=== PATIENT | female | born 1990 | race African-American/Black ===

== ENCOUNTER 2021-05-29 15:58 | Observation (INO) ==
[2021-05-29 17:10] LABS: Basophils # 0.1 K/mcL (0.0-0.2); Basophils % 0.8 %; Eosinophils # 0.1 K/mcL (0.0-0.6); Eosinophils % 0.9 %; Hematocrit 42.8 % (35.3-44.9); Hemoglobin 13.3 g/dL (11.5-15.4); Immature Granulocytes % 0.3 % (0-4); Lymphocytes # 1.7 K/mcL (0.6-4.6); Lymphocytes % 26.3 %; Mean Corpuscular HGB Conc 31.1 g/dL (31.6-35.5); Mean Corpuscular Hemoglobin 25.6 pg (28.0-33.3); Mean Corpuscular Volume 82.5 fL (83.0-100.0); Mean Platelet Volume 9.1 fL (9.4-12.4); Monocytes # 0.4 K/mcL (0.0-1.3); Monocytes % 5.8 %; Neutrophils # 4.4 K/mcL (1.6-8.9); Platelet Count 371 K/mcL (140-400); Red Blood Count 5.19 M/mcL (3.82-4.97); Red Cell Distribution Width 13.8 % (11.5-14.5); Segmented Neutrophils % 65.9 %; White Blood Count 6.6 K/mcL (4.3-11.1)
[2021-05-29 17:20] LABS: BUN/Creatinine Ratio 17 (6-26); Blood Urea Nitrogen 14 mg/dL (6-20); Calcium 9.5 mg/dL (8.6-10.3); Carbon Dioxide 26 mEq/L (23-29); Chloride 103 mEq/L (98-107); Glucose 98 mg/dL (70-105); Osmolality,Calculated 284 (280-300); Sodium 137 mEq/L (136-145); eGFR For African Americans > 60 (> 60); eGFR For Non-African Americans > 60 (> 60)
[2021-05-29] MEDS ORDERED: Isovue-370 500 ML BOTTLE IVP ONE (17:38)
[2021-05-29 18:02] LABS: Influenza A PCR Negative (Negative); Influenza B PCR Negative (Negative); Resp. Syncytial Virus PCR Negative (Negative)
[2021-05-29 18:03] LABS: SARS-CoV-2 by PCR (In House) Negative (Negative)
[2021-05-29 18:41] LABS: Bacteria,Urine Few per hpf (None-Few); Bilirubin,Urine Negative (Negative); Blood,Urine Large (Negative); Clarity,Urine Turbid (Clear); Color,Urine Light-Orange (Yellow); Glucose,Urine (UA) Normal (Normal); Ketones,Urine Trace mg/dL (Negative); Leukocyte Esterase,Urine Moderate (Negative); Mucus,Urine Many per lpf (None-Few); Nitrite,Urine Negative (Negative); Protein,Urine 70 mg/dL (Neg-Trace); RBC,Urine TNTC per hpf (0-3); Renal Epithelial Cells,Urine Few per hpf (None-Few); Specific Gravity,Urine 1.027 (1.010-1.025); Squamous Epithelial Cell,Urine Many per hpf (None-Few); Transitional Epi Cells,Urine Few per hpf (None-Few); Urobilinogen,Urine Normal (Normal); WBC,Urine 50-100 per hpf (0-3)
[2021-05-29] MEDS ORDERED: *HR* Heparin 5,000 UNIT/ML VIAL IVP PRN ×2 (19:40)
[2021-05-29] MEDS ORDERED: *HR* Heparin 5,000 UNIT/ML VIAL IVP ONE (19:40)
[2021-05-29] MEDS ORDERED: Heparin 25,000UNIT/250ML 1/2NS 25,000 UNIT/250 ML IV.SOLN IVC SCH (19:45)
[2021-05-29 19:47] LABS: INR 1.1; Prothrombin Time 12.7 Seconds (9.4-12.1)
[2021-05-29 19:50] LABS: Activated Partial Thrombo Time 31.8 Seconds (26.0-36.0)
[2021-05-29] MEDS ORDERED: Heparin 25,000UNIT/250ML 1/2NS 25,000 UNIT/250 ML IV.SOLN ONE (19:51)
[2021-05-29] MEDS ORDERED: Piperacillin/Tazobactam 3.375 GM in 0.9 % Sodium Chloride Mini Bag 100 ML IVPB ONE (21:40)
[2021-05-29] MEDS ORDERED: Azithromycin 500 MG in 0.9 % Sodium Chloride 250 ML IVPB ONE (21:51)
[2021-05-29] MEDS ORDERED: Naloxone 0.4 MG/ML INJ IVP PRN (23:21)
[2021-05-29] MEDS ORDERED: Melatonin 3 MG TABLET PO PRN (23:21)
[2021-05-29] MEDS ORDERED: Ondansetron 4 MG/2 ML VIAL IVP PRN (23:21)
[2021-05-30] MEDS ORDERED: *HR* Heparin 5,000 UNIT/ML VIAL IVP PRN ×2 (00:58)
[2021-05-30] MEDS ORDERED: Heparin 25,000UNIT/250ML 1/2NS 25,000 UNIT/250 ML IV.SOLN IVC SCH (01:00)
[2021-05-30] MEDS: *HR* HYDROcodone/Acet 5/325 mg TABLET PO PRN ×4 (01:58→21:35)
[2021-05-30] MEDS ORDERED: Perflutren Lipid Microsphere 1.3 ML in 0.9 % Sodium Chloride 8.7 ML IVP PRN (02:25)
[2021-05-30] MEDS ORDERED: Gadolinium Contrast Agent (WT Based) IV PRN (07:37)
[2021-05-30] MEDS ORDERED: *HR* LORazepam 2 MG/ML VIAL IVP ONE (08:14)
[2021-05-30] MEDS: Piperacillin/Tazobactam 3.375 GM in 0.9 % Sodium Chloride Mini Bag 100 ML IVPB SCH ×2 (12:17→21:29)
[2021-05-30] MEDS: *HR* Enoxaparin 100 MG/ML SYRINGE SQ SCH ×2 (12:18→21:30)
[2021-05-30] MEDS ORDERED: hydrOXYzine pamoate 25 MG CAPSULE PO PRN (16:48)
[2021-05-30] MEDS ORDERED: Azithromycin 250 MG TABLET PO SCH (21:00)
[2021-05-31] MEDS: *HR* HYDROcodone/Acet 5/325 mg TABLET PO PRN (03:52)
[2021-05-31] MEDS: Piperacillin/Tazobactam 3.375 GM in 0.9 % Sodium Chloride Mini Bag 100 ML IVPB SCH (03:52)
[2021-05-31 06:58] LABS: Hematocrit 35.4 % (35.3-44.9); Mean Corpuscular HGB Conc 31.1 g/dL (31.6-35.5); Mean Corpuscular Hemoglobin 25.6 pg (28.0-33.3); Mean Corpuscular Volume 82.3 fL (83.0-100.0); Mean Platelet Volume 9.2 fL (9.4-12.4); Platelet Count 363 K/mcL (140-400); Red Cell Distribution Width 13.7 % (11.5-14.5)
[2021-05-31 07:00] LABS: Basophils % 0.5 %; Eosinophils # 0.2 K/mcL (0.0-0.6); Eosinophils % 2.5 %; Hematocrit 35.6 % (35.3-44.9); Hemoglobin 10.9 g/dL (11.5-15.4); Immature Granulocytes % 0.3 % (0-4); Lymphocytes # 2.3 K/mcL (0.6-4.6); Lymphocytes % 38.7 %; Mean Corpuscular HGB Conc 30.6 g/dL (31.6-35.5); Mean Corpuscular Hemoglobin 25.2 pg (28.0-33.3); Mean Corpuscular Volume 82.4 fL (83.0-100.0); Mean Platelet Volume 9.3 fL (9.4-12.4); Monocytes # 0.5 K/mcL (0.0-1.3); Monocytes % 7.7 %; Platelet Count 364 K/mcL (140-400); Red Blood Count 4.32 M/mcL (3.82-4.97); Red Cell Distribution Width 13.5 % (11.5-14.5); Segmented Neutrophils % 50.3 %
[2021-05-31 07:05] LABS: INR 1.2; Prothrombin Time 12.9 Seconds (9.4-12.1)
[2021-05-31 07:19] LABS: Alanine Aminotransferase 9 Units/L (7-52); Albumin 3.4 g/dL (3.5-5.7); Albumin/Globulin Ratio 1.2 (1.1-2.2); Alkaline Phosphatase 76 Units/L (34-104); Aspartate Amino Transferase 8 Units/L (13-39); BUN/Creatinine Ratio 25 (6-26); Bilirubin,Total 0.3 mg/dL (0.3-1.0); Blood Urea Nitrogen 17 mg/dL (6-20); Calcium 8.9 mg/dL (8.6-10.3); Carbon Dioxide 24 mEq/L (23-29); Chloride 107 mEq/L (98-107); Globulin 2.9 g/dL (2.4-3.5); Glucose 103 mg/dL (70-105); Osmolality,Calculated 288 (280-300); Potassium 4.2 mEq/L (3.5-5.1); Sodium 138 mEq/L (136-145); Total Protein 6.3 g/dL (6.4-8.9); eGFR For African Americans > 60 (> 60); eGFR For Non-African Americans > 60 (> 60)
[2021-05-31 08:57] VITALS: BP 108/70; PULSE 84; TEMP 99; O2SAT 98
[2021-05-31] MEDS ORDERED: *HR* Rivaroxaban 15 MG TABLET PO SCH (09:00)
[2021-06-03 03:18] LABS: APTT (LE Anticoag) 101 sec (32-48); Diluted Russell Viper Venom 35 sec (33-44); LE Coag APTT Mixing 58 sec (32-48); PT (LE-Anticoag) 15.5 sec (12.0-15.5); Thrombin Time 16.8 sec (14.7-19.5)
== END 2021-05-31 11:30 | disposition home or self-care (01) ==
LOC: 2ANU 15:58 → EMEROOARM 15:58 → SUATTDRO 05-30 00:22 → 2ANU 05-30 00:25
PROVIDERS: ADMIT Internal Medicine; ATTEND Internal Medicine

== ENCOUNTER 2021-12-22 06:05 | Inpatient (IN) ==
[2021-12-22] MEDS ORDERED: Ringers Solution, Lactated 1,000 ML IVC SCH (06:45)
[2021-12-22] MEDS ORDERED: *HR* OxyCODONE Immed Rel 5 MG TABLET PO PRN (07:18)
[2021-12-22] MEDS ORDERED: Promethazine 6.25 MG in Water for inj. (sterile) 20 ML IVPB PRN (07:18)
[2021-12-22] MEDS ORDERED: *HR* HYDROmorphone PF 0.5 MG/0.5 ML SYRINGE IVP PRN (07:18)
[2021-12-22] MEDS ORDERED: Famotidine 20 MG/2 ML VIAL IVP ONE (07:18)
[2021-12-22] MEDS ORDERED: Scopolamine Patch 1.5 MG PATCH.TD72 TD ONE (07:18)
[2021-12-22] MEDS ORDERED: Acetaminophen IV 1,000 MG/100 ML BAG IVPB ONE (07:18)
[2021-12-22] MEDS ORDERED: *HR* HYDROmorphone 2 MG TABLET PO PRN (07:18)
[2021-12-22] MEDS ORDERED: Pregabalin 75 MG CAPSULE PO ONE (07:18)
[2021-12-22] MEDS ORDERED: Lidocaine -MPF 2% 2 ML VIAL ONE ×2 (07:48→07:49)
[2021-12-22] MEDS ORDERED: *HR* Propofol 200 MG/20 ML VIAL IVP ONE ×3 (07:48→10:41)
[2021-12-22] MEDS ORDERED: *HR* Midazolam HCl 2 MG/2 ML VIAL ONE ×2 (07:48→09:29)
[2021-12-22] MEDS ORDERED: *HR* FentaNYL (PF) 100 MCG/2 ML VIAL ONE (07:48)
[2021-12-22] MEDS ORDERED: Ondansetron 4 MG/2 ML VIAL ONE (07:49)
[2021-12-22] MEDS ORDERED: Ketamine HCL *QUVA* 50mg (1mL) SYRINGE ONE (07:52)
[2021-12-22] MEDS ORDERED: *HR* Belladonna Alkaloids/Opium 30 MG RECTAL SUPPOSITORY RC ONE (08:00)
[2021-12-22] MEDS ORDERED: Bupivacaine/EPI 1:200k 0.25% 50 ML VIAL ONE (08:01)
[2021-12-22] MEDS ORDERED: Ferric Subsulfate 8 GM TOPICAL ONE (08:01)
[2021-12-22] MEDS: ACETIC ACID IR SCH (09:11)
[2021-12-22] MEDS ORDERED: Silver Nitrate Applicator 1 STICK..EA. TP ONE (09:32)
[2021-12-22] MEDS ORDERED: Ibuprofen 600 MG TABLET PO PRN (10:05)
[2021-12-22] MEDS ORDERED: flumazeniL 0.5 MG/5 ML VIAL IVP ONE (10:17)
[2021-12-22] MEDS ORDERED: Heparin 1,000 UNITS/500 mL 500 ML ONE (10:58)
[2021-12-22 11:07] LABS: ABG Base Excess -1 mEq/L (-2 to 3); ABG HCO3 24 mEq/L (21-27); ABG Oxygen Saturation 99 % (95-98); ABG PCO2 38 mmHg (35-45); ABG PH 7.41 pH Units (7.32-7.45); ABG PO2 127 mmHg (85-104); ABG TCO2 25 mEq/L (20-26); Blood Gas Pressure Support 12 cm H2O
[2021-12-22] MEDS: *HR* Labetalol 20 MG/4 ML SYRINGE IVP PRN ×2 (11:24→11:35)
[2021-12-22] MEDS ORDERED: Isovue-370 500 ML BOTTLE IVP ONE ×2 (11:42→12:07)
[2021-12-22 11:53] LABS: ABG Base Excess 0 mEq/L (-2 to 3); ABG HCO3 24 mEq/L (21-27); ABG Oxygen Saturation 100 % (95-98); ABG PCO2 36 mmHg (35-45); ABG PH 7.44 pH Units (7.32-7.45); ABG PO2 217 mmHg (85-104); ABG TCO2 25 mEq/L (20-26)
[2021-12-22] MEDS ORDERED: Ipratropium/Albuterol Neb 3 ML ONE (11:55)
[2021-12-22 12:08] LABS: Alanine Aminotransferase 10 Units/L (7-52); Albumin 3.8 g/dL (3.5-5.7); Albumin/Globulin Ratio 1.3 (1.1-2.2); Alkaline Phosphatase 112 Units/L (34-104); Aspartate Amino Transferase 10 Units/L (13-39); BUN/Creatinine Ratio 19 (6-26); Bilirubin,Total 0.2 mg/dL (0.3-1.0); Blood Urea Nitrogen 11 mg/dL (6-20); Calcium 8.8 mg/dL (8.6-10.3); Carbon Dioxide 24 mEq/L (23-29); Chloride 107 mEq/L (98-107); Globulin 2.9 g/dL (2.4-3.5); Glucose 113 mg/dL (70-105); Magnesium 1.9 mg/dL (1.6-2.6); Osmolality,Calculated 288 (280-300); Sodium 139 mEq/L (136-145); Total Protein 6.7 g/dL (6.4-8.9); eGFR For African Americans > 60 (> 60); eGFR For Non-African Americans > 60 (> 60)
[2021-12-22 13:30] LABS: Basophils % 0.3 %; Hematocrit 40.7 % (35.3-44.9); Hemoglobin 12.3 g/dL (11.5-15.4); Immature Granulocytes % 0.3 % (0-4); Lymphocytes # 0.8 K/mcL (0.6-4.6); Lymphocytes % 12.8 %; Mean Corpuscular HGB Conc 30.2 g/dL (31.6-35.5); Mean Corpuscular Hemoglobin 23.6 pg (28.0-33.3); Mean Corpuscular Volume 78.1 fL (83.0-100.0); Mean Platelet Volume 9.6 fL (9.4-12.4); Monocytes # 0.1 K/mcL (0.0-1.3); Monocytes % 1.4 %; Neutrophils # 5.6 K/mcL (1.6-8.9); Platelet Count 343 K/mcL (140-400); Red Blood Count 5.21 M/mcL (3.82-4.97); Red Cell Distribution Width 18.7 % (11.5-14.5); Segmented Neutrophils % 85.2 %; White Blood Count 6.6 K/mcL (4.3-11.1)
[2021-12-22 13:41] LABS: INR 1.1; Prothrombin Time 12.7 Seconds (9.4-12.1)
[2021-12-22] MEDS ORDERED: Ipratropium/Albuterol Neb 3 ML IH ONE (13:41)
[2021-12-22] MEDS ORDERED: Dexamethasone Sodium Phos/PF 10 MG/ML VIAL IVP ONE (13:42)
[2021-12-22 13:44] LABS: Activated Partial Thrombo Time 35.5 Seconds (26.0-36.0)
[2021-12-22] MEDS: D5% in 0.45% NACL w KCl 20 MEQ/1,000 ML MLS IVC SCH (15:39)
[2021-12-22] MEDS ORDERED: Gadolinium Contrast Agent (WT Based) IV PRN (16:59)
[2021-12-22] MEDS ORDERED: Dexmedetomidine HCl 400 MCG/100 ML MLS IVC ONE (20:13)
[2021-12-22] MEDS: Dexmedetomidine HCl 400 MCG/100 ML MLS IVC SCH (21:18)
[2021-12-23] MEDS: D5% in 0.45% NACL w KCl 20 MEQ/1,000 ML MLS IVC SCH (02:53)
[2021-12-23] MEDS: Dexmedetomidine HCl 400 MCG/100 ML MLS IVC SCH (02:57)
[2021-12-23 08:00] LABS: Basophils % 0.1 %; Hemoglobin 11.3 g/dL (11.5-15.4); Immature Granulocytes % 0.4 % (0-4); Lymphocytes # 1.5 K/mcL (0.6-4.6); Lymphocytes % 15.8 %; Mean Corpuscular HGB Conc 29.7 g/dL (31.6-35.5); Mean Corpuscular Hemoglobin 23.6 pg (28.0-33.3); Mean Corpuscular Volume 79.5 fL (83.0-100.0); Monocytes # 0.9 K/mcL (0.0-1.3); Monocytes % 9.1 %; Neutrophils # 6.9 K/mcL (1.6-8.9); Platelet Count 344 K/mcL (140-400); Red Blood Count 4.78 M/mcL (3.82-4.97); Red Cell Distribution Width 19.1 % (11.5-14.5); Segmented Neutrophils % 74.6 %; White Blood Count 9.3 K/mcL (4.3-11.1)
[2021-12-23 08:16] LABS: BUN/Creatinine Ratio 10 (6-26); Blood Urea Nitrogen 7 mg/dL (6-20); Calcium 8.8 mg/dL (8.6-10.3); Carbon Dioxide 25 mEq/L (23-29); Chloride 108 mEq/L (98-107); Glucose 155 mg/dL (70-105); Osmolality,Calculated 291 (280-300); Potassium 4.6 mEq/L (3.5-5.1); Sodium 140 mEq/L (136-145); eGFR For African Americans > 60 (> 60); eGFR For Non-African Americans > 60 (> 60)
[2021-12-23] MEDS ORDERED: Ibuprofen 600 MG TABLET PO PRN (18:39)
[2021-12-23] MEDS ORDERED: Dexmedetomidine HCl 400 MCG/100 ML MLS IVC SCH (18:39)
[2021-12-23] MEDS ORDERED: Acetaminophen 325 MG TABLET PO ONE (20:32)
[2021-12-23] MEDS: Ibuprofen 600 MG TABLET PO PRN (23:59)
[2021-12-24 06:08] LABS: Bacteria,Urine Few per hpf (None-Few); Bilirubin,Urine Negative (Negative); Blood,Urine Large (Negative); Clarity,Urine Turbid (Clear); Color,Urine Light-Yellow (Yellow); Glucose,Urine (UA) Normal (Normal); Ketones,Urine Negative (Negative); Leukocyte Esterase,Urine Large (Negative); Mucus,Urine Few per lpf (None-Few); Nitrite,Urine Negative (Negative); PH,Urine 6.5 pH Units (5.0-8.0); Protein,Urine 30 mg/dL (Neg-Trace); Squamous Epithelial Cell,Urine Many per hpf (None-Few); Urobilinogen,Urine Normal (Normal); WBC,Urine 15-30 per hpf (0-3)
[2021-12-24] MEDS ORDERED: Thiamine (B-1) 100 MG in 0.9 % Sodium Chloride 50 ML IVPB SCH (14:00)
[2021-12-24] MEDS: Ibuprofen 600 MG TABLET PO PRN (15:44)
[2021-12-24] MEDS: *HR* Rivaroxaban 10 MG TABLET PO SCH (15:44)
[2021-12-24] MEDS: Methylphenidate HCl 10 MG TABLET PO SCH ×2 (15:44→16:03)
[2021-12-24] MEDS: Thiamine (B-1) 100 MG TABLET PO SCH (16:00)
[2021-12-24] MEDS ORDERED: *HR* Rivaroxaban 15 MG TABLET PO SCH (17:00)
[2021-12-24] MEDS: Ondansetron ODT 4 MG TAB.RAPDIS SL PRN (18:40)
[2021-12-24 19:03] LABS: Amphetamines NEGATIVE ng/mL (Cutoff 20); Barbiturates NEGATIVE ng/mL (Cutoff 50); Buprenorphine NEGATIVE ng/mL (Cutoff 1); Cocaine NEGATIVE ng/mL (Cutoff 20); Methadone NEGATIVE ng/mL (Cutoff 25); Methamphetamines NEGATIVE ng/mL (Cutoff 20); Opiates NEGATIVE ng/mL (Cutoff 20); Phencyclidine NEGATIVE ng/mL (Cutoff 10)
[2021-12-24] MEDS: *HR* Rivaroxaban 15 MG TABLET PO SCH ×2 (20:30→20:32)
[2021-12-24] MEDS: ACETIC ACID IR SCH (20:30)
[2021-12-25] MEDS: Thiamine (B-1) 100 MG TABLET PO SCH (10:34)
[2021-12-25] MEDS: Methylphenidate HCl 10 MG TABLET PO SCH ×2 (10:34→17:27)
[2021-12-25 11:11] LABS: Benzodiazepines POSITIVE ng/mL (Cutoff 50)
[2021-12-25] MEDS: Ondansetron ODT 4 MG TAB.RAPDIS SL PRN (13:26)
[2021-12-25] MEDS: *HR* Rivaroxaban 10 MG TABLET PO SCH (17:27)
[2021-12-26] MEDS: Methylphenidate HCl 10 MG TABLET PO SCH ×2 (07:51→17:40)
[2021-12-26] MEDS: Thiamine (B-1) 100 MG TABLET PO SCH (07:51)
[2021-12-26 12:13] LABS: 7-aminoclonazepam Conf <5 ng/mL; Alpha-hydroxyalprazolam Conf <5 ng/mL; Alprazolam Confirmation <5 ng/mL; Chlordiazepoxide Conf <20 ng/mL; Clonazepam Conf <5 ng/mL; Lorazepam Confirmation <20 ng/mL; Midazolam Confirmation <20 ng/mL; Nordiazepam Confirmation <20 ng/mL; Oxazepam Confirmation <20 ng/mL; Temazepam Confirmation <20 ng/mL
[2021-12-26 15:36] VITALS: BP 140/99; PULSE 107; TEMP 98.7; O2SAT 98
[2021-12-26] MEDS: *HR* Rivaroxaban 10 MG TABLET PO SCH ×2 (17:40→18:03)
[2021-12-27 11:47] LABS: Alpha-hydroxymidazolam Conf <20 ng/mL; Diazepam Confirmation <5 ng/mL
== END 2021-12-26 18:22 | disposition home or self-care (01) | DRG 91 ==
LOC: SAMDAY 06:05 → ICNU 13:32 → SUATTDRO 12-23 15:24 → ICNU 12-23 15:24 → 3BNU 12-23 18:10
PROVIDERS: ADMIT Family Medicine; ATTEND Internal Medicine